=== PATIENT | male | born 1935 | race Hispanic/Latino ===

== ENCOUNTER 2017-10-10 10:09 | Observation (INO) | payer MEDICARE, OTHER ==
[~2017-10-10] VITALS: Ht 165.1 cm; Wt 76.7 kg
[~2017-10-10 10:09] MED LIST: AMLODIPINE-BEN1 EAC3; CHLORTHALIDONE50 MG; CLINDAMYCIN HC300 MG PO; DIOVAN HCT 3201 EACH PO; HYDRALAZINE HC100 MG; KETOCONAZOLE15 GM TOP; LEVOTHYROXINE75 MCG PO; LOSARTAN-HCTZ1 EAC2; METOPROLOL SUC100 MG PO; NAMENDA10 MG; PRAVACHOL20 MG
[2017-10-10 11:36] LABS: BASOPHILS % 0.5 % (0.0-1.0); EOSINOPHILS # (AUTO) 0.2 (0.0-0.4); EOSINOPHILS % 2.7 % (0.0-6.0); HEMATOCRIT 38.2 % (38.2-49.6); HEMOGLOBIN 12.7 g/dL (14.0-18.0); LYMPHOCYTES # (AUTO) 1.5 (1.0-3.2); LYMPHOCYTES % 24.1 % (18.0-39.1); MEAN CORPUSCULAR HEMOGLOBIN 29.6 pg (28-32); MEAN CORPUSCULAR HGB CONC 33.2 g/dL (31-35); MONOCYTES # (AUTO) 0.5 (0.2-0.8); MONOCYTES % 7.9 % (4.4-11.3); NEUTROPHILS # (AUTO) 4.1 (2.1-6.9); NEUTROPHILS % 64.5 % (38.7-80.0); PLATELET COUNT 167 x10e3/uL (140-360); RED BLOOD COUNT 4.29 x10e6/uL (4.3-5.7); RED CELL DISTRIBUTION WIDTH 14.4 % (11.7-14.4)
[2017-10-10 11:46] LABS: INR 1.07; PROTHROMBIN TIME 13.1 seconds (11.9-14.5)
[2017-10-10 11:47] LABS: PARTIAL THROMBOPLASTIN TIME 27.2 seconds (23.8-35.5)
[2017-10-10 11:56] LABS: ALANINE AMINOTRANSFERASE 11 IU/L (0-55); ALBUMIN 3.6 g/dL (3.5-5.0); ALBUMIN/GLOBULIN RATIO 1.1 (0.8-2.0); ALKALINE PHOSPHATASE 83 IU/L (40-150); ANION GAP 13.6 mmol/L (8-16); BLOOD UREA NITROGEN 26 mg/dL (7-26); BUN/CREATININE RATIO 25 (6-25); CALCIUM 9.2 mg/dL (8.4-10.2); CARBON DIOXIDE 28 mmol/L (22-29); CHLORIDE 100 mmol/L (98-107); CREATININE, SERUM 1.06 mg/dL (0.72-1.25); EST GLOMERULAR FILTRATION RATE > 60 ML/MIN (60-); GLUCOSE 104 mg/dL (74-118); POTASSIUM 3.6 mmol/L (3.5-5.1); SODIUM 138 mmol/L (136-145)
--- NOTE | 2017-10-10 15:09 | Diagnostic Imaging Report ---
PROCEDURE:CTA LOWER EXTREMITIES BILAT COMPARISON:None. TECHNIQUE:Bilateral lower extremity runoff was performed following the IV administration of 100 cc of Isovue-370. Postprocessing on a stand alone computer was accomplished. INDICATIONS:RIGHT LOWER EXTREMITY SWELLING X TWO WEEKS FINDINGS:Pelvic vessels reveal diffuse atherosclerotic disease without focal stenosis. The prostate is enlarged. Right Lower Extremity: The SFA is diffusely calcified but patent. Vessels below the knee have inadequate opacification to evaluate. Left Lower Extremity: The SFA is occluded. No opacification in the arteries below the knee. CONCLUSION: 1. Limited study due to lack of optimal contrast opacification particularly in the below the knee arteries. 2. Left SFA is occluded at its origin. 3. No left popliteal reconstitution. Ervin Steven D.O. Dictated by: Ervin Steven D.O. on 10/10/2017 at 14:58 Electronically approved by: Ervin Steven D.O. on 10/10/2017 at 15:14
[2017-10-10] MEDS ORDERED: CLINDAMYCIN PHOS 900MG/ D5W 50 50 ML IV STA (15:10)
[2017-10-10] MEDS ORDERED: ONDANSETRON HCL INJ 2 MG/ML VIAL IV PRN (16:30)
[2017-10-10] MEDS: SODIUM CHLORIDE 0.9% 1000ML 1,000 ML IV SCH (16:30)
[2017-10-10] MEDS ORDERED: ACETAMINOPHEN 325 MG TAB PO PRN (16:30)
[2017-10-10 16:56] VITALS: BP 154/72
[2017-10-10 16:57] VITALS: BP 154/72
[2017-10-10] MEDS ORDERED: SODIUM CHLORIDE 0.9% 100 ML 100 ML ONE (17:48)
[2017-10-10] MEDS ORDERED: IOPAMIDOL 370 MG/ML 200 ML INFUS..BTL INJ ONE (17:48)
[2017-10-10] MEDS: VANCOMYCIN 1GM/NS 250 ML 250 ML IV SCH (17:50)
[2017-10-10 20:00] VITALS: BP 105/61
[2017-10-10] MEDS: HEPARIN SOD (PORCINE) 5,000 UNIT/ML VIAL SC SCH (21:37)
[2017-10-11] VITALS: BP 118/64
[2017-10-11 04:00] VITALS: BP 151/73
[2017-10-11] MEDS: SODIUM CHLORIDE 0.9% 1000ML 1,000 ML IV SCH (05:12)
[2017-10-11] MEDS: VANCOMYCIN 1GM/NS 250 ML 250 ML IV SCH (05:12)
[2017-10-11 05:38] LABS: BASOPHILS % 0.4 % (0.0-1.0); EOSINOPHILS # (AUTO) 0.2 (0.0-0.4); EOSINOPHILS % 3.3 % (0.0-6.0); HEMATOCRIT 40.3 % (38.2-49.6); HEMOGLOBIN 13.3 g/dL (14.0-18.0); LYMPHOCYTES # (AUTO) 1.2 (1.0-3.2); LYMPHOCYTES % 20.4 % (18.0-39.1); MEAN CORPUSCULAR HEMOGLOBIN 28.9 pg (28-32); MEAN CORPUSCULAR VOLUME 87.6 fL (81-99); MONOCYTES # (AUTO) 0.5 (0.2-0.8); MONOCYTES % 7.9 % (4.4-11.3); NEUTROPHILS # (AUTO) 3.8 (2.1-6.9); NEUTROPHILS % 66.8 % (38.7-80.0); PLATELET COUNT 178 x10e3/uL (140-360); RED CELL DISTRIBUTION WIDTH 14.3 % (11.7-14.4)
[2017-10-11 05:59] LABS: ANION GAP 15.1 mmol/L (8-16); BLOOD UREA NITROGEN 23 mg/dL (7-26); BUN/CREATININE RATIO 23 (6-25); CALCIUM 8.8 mg/dL (8.4-10.2); CARBON DIOXIDE 23 mmol/L (22-29); CHLORIDE 103 mmol/L (98-107); EST GLOMERULAR FILTRATION RATE > 60 ML/MIN (60-); GLUCOSE 106 mg/dL (74-118); POTASSIUM 3.1 mmol/L (3.5-5.1); SODIUM 138 mmol/L (136-145)
[2017-10-11] MEDS ORDERED: LEVOTHYROXINE SODIUM 75 MCG TAB PO SCH ×2 (06:00→09:00)
[2017-10-11 08:00] VITALS: BP 160/74
[2017-10-11] MEDS ORDERED: NON-FORMULARY MEDICATION (Metoprolol Succinate 100 MG) PO SCH (09:00)
[2017-10-11] MEDS ORDERED: ASPIRIN 325 MG TAB PO SCH (09:00)
[2017-10-11] MEDS ORDERED: ASPIRIN 81 MG CHEW TAB PO SCH (09:00)
[2017-10-11] MEDS ORDERED: NAMENDA 28MG NON FORMULARY ITEM PO SCH (09:00)
[2017-10-11] MEDS ORDERED: METOPROLOL SUCCINATE 50 MG TAB XL PO SCH (09:00)
[2017-10-11] MEDS ORDERED: MEMANTINE 10 MG TAB PO SCH (09:00)
[2017-10-11 09:50] VITALS: BP 160/74
[2017-10-11] MEDS: HEPARIN SOD (PORCINE) 5,000 UNIT/ML VIAL SC SCH (09:50)
[2017-10-11 12:00] VITALS: BP 131/63
[2017-10-11] MEDS ORDERED: POTASSIUM CHLORIDE 20 MEQ TAB CR PO ONE (12:00)
[2017-10-11] MEDS ORDERED: BACTRIM DS TAB1 EACH PO (12:43)
[2017-10-11] MEDS ORDERED: ASPIRIN81 MG PO (12:44)
--- NOTE | 2017-10-11 13:25 | Discharge Summary ---
PRIMARY CARE PHYSICIAN: Dr. Tari Weiner. FINAL DIAGNOSIS: Right leg cellulitis. SECONDARY DIAGNOSES 1. Left leg peripheral vascular disease. 2. Hypertension. 3. Dementia. 4. Coronary artery disease with previous coronary artery bypass graft. CONSULTANTS: None. PROCEDURES/STUDIES PERFORMED: Right leg venous Doppler negative for DVT. HISTORY: Per H\T\P. HOSPITAL COURSE: The patient was admitted. He received a dose of IV clindamycin in the emergency room. Subsequently, IV vancomycin was started. He got 2 doses. Today, his right leg is looking much better. The redness has significantly decreased. Therefore, I will go ahead and send him home on p.o. Bactrim for 3 more days. The patient will also elevate his right leg when he is on his feet. The patient will follow up with Dr. Weiner in one week. Interestingly, CTA of both legs were done in the emergency room, and it looks like the patient has peripheral vascular disease on the left side. Apparently, this does not appear to be new. at the bedside endorsed that this was diagnosed about a year of two ago. At this time, the patient is completely asymptomatic. Therefore, the patient can be discharged home with outpatient workup. The patient was seen and examined today. A baby aspirin was started for both his coronary artery disease and peripheral vascular disease. CONDITION ON DISCHARGE: Improved. DISCHARGE MEDICATIONS: Please see medication reconciliation form. OBI CARTER M.D. Job#: [id number] cc:TARI WEINER MD
== END 2017-10-11 13:03 | disposition home or self-care (01) ==
LOC: ER 10:09 → ERHOLD 16:19 → MED/SURG 16:21
PROVIDERS: ADMIT Internal Medicine; ATTEND Internal Medicine
DX: L03.115 Cellulitis of right lower limb (principal); I10 Essential (primary) hypertension; E03.9 Hypothyroidism, unspecified; F03.90 Unspecified dementia, unspecified severity, without behavioral disturbance, psychotic disturbance, mood disturbance, and anxiety; I25.10 Atherosclerotic heart disease of native coronary artery without angina pectoris; Z95.1 Presence of aortocoronary bypass graft; Z82.49 Family history of ischemic heart disease and other diseases of the circulatory system; Z88.0 Allergy status to penicillin; I73.9 Peripheral vascular disease, unspecified
CPT/HCPCS: 36415 ×2; 73706; 80048; 80053; 85025 ×2; 85610; 85730; 93971; 96367; 96372; 99284; G0378 ×2; J1644 ×2; J3370 ×2; J7030 ×2; Q9967

== ENCOUNTER 2018-10-09 07:58 | Observation (INO) | payer MEDICARE, OTHER ==
[~2018-10-09] VITALS: Ht 170.2 cm; Wt 74.8 kg
[~2018-10-09 07:58] MED LIST changes: +ASPIRIN81 MG PO; +BACTRIM DS TAB1 EACH PO
--- OUTSIDE RECORDS SUMMARY | 2018-10-09 08:01 | XMS REPORT | Continuity of Care Document ---
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 Name Role Phone Vyatta Information [employer] Unavailable Unavailable Problems Problem Status Onset Date Classification Date Reported Comments Source LOWER GI BLEED Active 08/11/2011 [facility] CAD - Coronary artery disease Active Problem 09/21/2011 [facility] [place],[facility] CHF - Congestive heart failure Inactive Problem 09/21/2011 [facility] [place] Hypothyroidism Active Problem 09/21/2011 [facility] [place] Coronary arteriosclerosis (disorder) Active Problem 03/31/2016 [facility] [place] Hypothyroidism (disorder) Active [facility]31[facility] [place] GASTROINTEST HEMORR NOS Active [facility] Medications Medication Details Route Status Patient Instructions Ordering Provider Order Date Source LR IV 1,000 mL 1,000 mL, Rate: 40 ml/hr, Infuse over: 25 hr, Route: IV, Dosing Weight 73.001 kg, Total Volume: 1,000, Start date: 08/14/11 9:50:00, Duration: 30 day, Stop date: 09/13/11 9:49:00 IV No Longer Active Georgiaouni 08/14/2011 [facility] GoLYTELY 4,000 ml, Route: PO, Drug Form: PDR/REC, ONCE, Start date: 08/13/11 18:06:00, Duration: 1 doses or times, Stop date: 08/13/11 18:06:00 PO No Longer Active Kafrouni 08/13/2011 [facility] Dulcolax Laxative 40 mg, 8 tab, Route: PO, Drug form: ECTAB, ONCE, Start date: 08/13/11 18:06:00, Stop date: 08/13/11 18:06:00 PO No Longer Active Kafrouni 08/13/2011 [facility] Mag-Ox 400 400 mg, 1 tab, Route: PO, Drug form: TAB, QPM, Start date: 08/13/11 17:00:00, Duration: 30 day, Stop date: 09/11/11 17:00:00 PO No Longer Active Adelita 08/13/2011 [facility] NovoLog FlexPen 4 unit, 0.04 mL, Route: SUB-Q, Drug form: SOLN, Bedtime, PRN Blood Glucose Results, Start date: 08/13/11 12:53:00, Duration: 30 day, Stop date: 09/12/11 12:52:00 SUB-Q No Longer Active Baba 08/13/2011 [facility] glucagon 1 mg, Route: IM, Drug form: PDR/INJ, PRN, PRN Blood Glucose Results, Start date: 08/13/11 12:52:00, Duration: 30 day, Stop date: 09/12/11 12:51:00 IM No Longer Active Baba 08/13/2011 [facility] Dextrose 50% in Water IV 50 mL, Route: IVP, Start date: 08/13/11 12:52:00, Duration: 30 day, Stop date: 09/12/11 12:51:00, PRN Blood Glucose Results IVP No Longer Active Bannera 08/13/2011 [facility] NovoLog FlexPen 10 unit, 0.1 mL, Route: SUB-Q, Drug form: SOLN, Sliding Scale, PRN Blood Glucose Results, Start date: 08/13/11 12:52:00, Duration: 30 day, Stop date: 09/12/11 12:51:00 SUB-Q No Longer Active Bannera 08/13/2011 [facility] Cordarone 200 mg, 1 tab, Route: PO, Drug form: TAB, Daily, Start date: 08/13/11 12:00:00, Duration: 30 day, Stop date: 09/12/11 9:00:00 PO No Longer Active [facility] 08/13/2011 [facility] pneumococcal 23-valent vaccine 0.5 ml, Route: IM, Drug Form: INJ, Start date: 08/13/11 9:00:00, Stop date: 08/13/11 9:00:00 IM No Longer Active SYSTEM 08/13/2011 [facility] hydrochlorothiazide 25 mg oral tablet 25 mg, 1 tab, Route: PO, Drug form: TAB, Daily, Start date: 08/13/11 9:00:00, Duration: 30 day, Stop date: 09/11/11 9:00:00 PO No Longer Active Baba 08/13/2011 [facility] Cozaar 100 mg, 2 tab, Route: PO, Drug form: TAB, Daily, Start date: 08/13/11 9:00:00, Duration: 30 day, Stop date: 09/11/11 9:00:00 PO No Longer Active Baba 08/13/2011 [facility] Hyzaar 100 mg-25 mg oral tablet 1 tab, Route: PO, Drug Form: TAB, Daily, Start date: 08/13/11 9:00:00, Duration: 30 day, Stop date: 09/11/11 9:00:00 PO No Longer Active Baba 08/13/2011 [facility] Pravachol 20 mg, 1 tab, Route: PO, Drug form: TAB, QPM, Start date: 08/12/11 21:00:00, Duration: 30 day, Stop date: 09/11/11 17:00:00 PO No Longer Active Baba 08/13/2011 [facility] hydrALAZINE 100 mg oral tablet 100 mg, 2 tab, Route: PO, Drug form: TAB, BID, Start date: 08/12/11 21:00:00, Duration: 30 day, Stop date: 09/11/11 9:00:00 PO No Longer Active Baba 08/13/2011 [facility] nitroglycerin 0.4 mg sublingual tablet 0.4 mg, 1 tab, Route: SL, Drug form: TAB, Q5Min, PRN Chest Pain, Start date: 08/12/11 20:40:00, Duration: 30 day, Stop date: 09/11/11 20:39:00 SL No Longer Active Baba 08/13/2011 [facility] atropine 0.5 mg, 5 mL, Route: IVP, Drug form: INJ, PRN, PRN Bradycardia, Start date: 08/12/11 20:40:00, Duration: 30 day, Stop date: 09/11/11 20:39:00 IVP No Longer Active Baba 08/13/2011 [facility] pantoprazole 40 mg, Route: IVP, Drug form: INJ, Daily, Priority: Routine, Start date: 08/12/11 9:00:00, Duration: 30 day, Stop date: 09/10/11 9:00:00 IVP No Longer Active Baba 08/12/2011 [facility] Saline Flush 0.9% 5 ml, Route: IVP, Drug Form: INJ, PRN, PRN Line Flush, Start date: 08/12/11 3:02:00, Duration: 30 day, Stop date: 09/11/11 3:01:00 IVP No Longer Active Baba 08/12/2011 [facility] 1/2NS + KCL 20mEq/L 1000ml (Premix) 1,000 mL 1,000 mL, Rate: 125 ml/hr, Infuse over: 8 hr, Route: IV, Dosing Weight 79.545 kg, Total Volume: 1,000, Start date: 08/12/11 3:02:00, Stop date: 09/11/11 3:01:00 IV No Longer Active Baba 08/12/2011 [facility] ondansetron 4 mg, 2 mL, Route: IVP, Drug form: INJ, Q6H, PRN Nausea & Vomiting, Start date: 08/12/11 3:02:00, Duration: 30 day, Stop date: 09/11/11 3:01:00 IVP No Longer Active Baba 08/12/2011 [facility] Centrum Silver Men's oral tablet Substitution Allowed, Maintenance Active 08/12/2011 [facility] Toprol-XL 100 mg oral tablet, extended release 100 mg, 1 tab, PO, Daily, 30 tab, Substitution Allowed, ERTAB PO No Longer Active 08/12/2011 [facility] Hyzaar 100 mg-25 mg oral tablet 1 tab, PO, Daily, 30 tab, Substitution Allowed, Maintenance, TAB PO Active Baba 08/12/2011 [facility] hydrALAZINE 100 mg oral tablet 100 mg, 1 tab, PO, BID, 60 tab, Substitution Allowed, TAB PO Active Baba 08/12/2011 [facility] Pravachol 20 mg oral tablet 20 mg, 1 tab, PO, Daily, 30 tab, Substitution Allowed, TAB PO Active Baba 08/12/2011 [facility] Saline Flush 0.9% 5 ml, Route: IVP, Drug Form: INJ, PRN, PRN Line Flush, Start date: 08/11/11 17:30:00, Duration: 30 day, Stop date: 09/10/11 17:29:00 IVP No Longer Active 08/11/2011 [facility] ondansetron 4 mg, Route: IVP, ONCE, Priority: STAT, Start date: 08/11/11 17:30:00, Stop date: 08/11/11 17:30:00 IVP No Longer Active Sera 08/11/2011 [facility] Allergies, Adverse Reactions, Alerts Substance Category Reaction Severity Reaction type Status Date Reported Comments Source penicillins Assertion Drug allergy Active [facility] Immunizations Immunization Date Given Site Status Last Updated Comments Source pneumococcal 23-valent vaccine 08/13/2011 Not Given Carin [facility] [place],[facility] Results Order Name Results Value Reference Range Date Interpretation Comments Source CHEMISTRY Bili Total 0.8 0.2 - 1.3 08/13/2011 Normal [facility] CHEMISTRY Alk Phos 51 39 - 136 08/13/2011 Normal [facility] CHEMISTRY ALT 19 0 - 65 08/13/2011 Normal [facility] CHEMISTRY Albumin Lvl 3.3 3.5 - 5.0 08/13/2011 LOW [facility] CHEMISTRY AST 18 0 - 37 08/13/2011 Normal [facility] CHEMISTRY BUN 14 7 - 22 08/13/2011 Normal [facility] CHEMISTRY Glucose Lvl 93 70 - 99 08/13/2011 Normal <sup>2</sup>Interpretive Data: Adult reference range values reflect the clinical guidelines of the [place] [employer]. [facility] CHEMISTRY Total Protein 5.9 6.4 - 8.4 08/13/2011 LOW [facility] CHEMISTRY Calcium Lvl 7.9 8.5 - 10.5 08/13/2011 LOW [facility] CHEMISTRY CO2 25 24 - 32 08/13/2011 Normal [facility] CHEMISTRY Creatinine Lvl 1.1 0.5 - 1.4 08/13/2011 Normal [facility] CHEMISTRY Sodium Lvl 143 135 - 145 08/13/2011 Normal [facility] CHEMISTRY Chloride Lvl 110 95 - 109 08/13/2011 HI [facility] CHEMISTRY Potassium Lvl 3.9 3.5 - 5.1 08/13/2011 Normal [facility] CHEMISTRY AGAP 11.9 10.0 - 20.0 08/13/2011 Normal [facility] CHEMISTRY Globulin 2.6 2.0 - 4.0 08/13/2011 Normal [facility] CHEMISTRY B/C Ratio 13 6 - 25 08/13/2011 Normal [facility] CHEMISTRY A/G Ratio 1.3 0.7 - 1.6 08/13/2011 [facility]EMATOLOGY MCHC 34.0 32.0 - 36.0 08/13/2011 [facility] HEMATOLOGY RDW 15.1 11.5 - 14.5 08/13/2011 [facility] HEMATOLOGY MCV 88.2 80.0 - 94.0 08/13/2011 [facility] HEMATOLOGY MCH 29.9 27.0 - 31.0 08/13/2011 [facility] HEMATOLOGY MPV 9.2 7.4 - 10.4 08/13/2011 [facility] HEMATOLOGY Platelet 161 133 - 450 08/13/2011 [facility] HEMATOLOGY Hct 31.6 42.0 - 54.0 08/13/2011 LOW [facility] HEMATOLOGY RBC 3.58 4.70 - 6.10 08/13/2011 LOW [facility] HEMATOLOGY Hgb 10.7 14.0 - 18.0 08/13/2011 LOW [facility] HEMATOLOGY WBC 5.2 3.7 - 10.4 08/13/2011 [facility] HEMATOLOGY Eosinophils # 0.1 0.0 - 0.5 08/13/2011 Normal [facility] HEMATOLOGY Eosinophils 2.5 0.0 - 4.0 08/13/2011 Normal [facility] HEMATOLOGY Lymphocytes # 1.2 1.0 - 5.5 08/13/2011 Normal [facility] HEMATOLOGY Segs-Bands # 3.4 1.5 - 8.1 08/13/2011 Normal [facility] HEMATOLOGY Monocytes # 0.4 0.0 - 0.8 08/13/2011 Normal [facility] HEMATOLOGY Basophils 0.3 0.0 - 1.0 08/13/2011 Normal [facility] HEMATOLOGY Lymphocytes 23.4 20.0 - 40.0 08/13/2011 Normal [facility] HEMATOLOGY Segs 65.3 45.0 - 75.0 08/13/2011 Normal [facility] HEMATOLOGY Monocytes 8.5 2.0 - 12.0 08/13/2011 Normal [facility] HEMATOLOGY Basophils # 0.0 0.0 - 0.2 08/13/2011 [facility] CHEMISTRY Creatinine Lvl 1.0 0.5 - 1.4 08/12/2011 Normal [facility] CHEMISTRY Sodium Lvl 139 135 - 145 08/12/2011 [facility] CHEMISTRY Chloride Lvl 107 95 - 109 08/12/2011 Normal [facility] CHEMISTRY Potassium Lvl 3.9 3.5 - 5.1 08/12/2011 Normal [facility] CHEMISTRY CO2 21 24 - 32 08/12/2011 LOW [facility] CHEMISTRY AGAP 14.9 10.0 - 20.0 08/12/2011 Normal [facility] CHEMISTRY Calcium Lvl 8.4 8.5 - 10.5 08/12/2011 LOW [facility] CHEMISTRY BUN 20 7 - 22 08/12/2011 Normal [facility] CHEMISTRY Glucose Lvl 89 70 - 99 08/12/2011 Normal <sup>3</sup>Interpretive Data: Adult reference range values reflect the clinical guidelines of the [place] [employer]. [facility] HEMATOLOGY Hct 33.9 42.0 - 54.0 08/12/2011 LOW [facility] HEMATOLOGY Hgb 11.7 14.0 - 18.0 08/12/2011 [facility] HEMATOLOGY Hgb 10.9 14.0 - 18.0 08/12/2011 [facility] HEMATOLOGY Hct 31.2 42.0 - 54.0 08/12/2011 [facility] BACTERIAL - SEROLOGY MRSA by PCR Negative 1 (08/12/2011 06:38:00) 08/12/2011 Normal <sup>1</sup>Interpretive Data: INTERPRETATION: Negative......No MRSA DNA detected by PCR Positive......MRSA DNA detected by PCR ASSAY LIMITATIONS: This is a screening test for colonization by MRSA. A positive test result indicates the patient is colonized by MRSA, but does not necessarily mean that an infection is present or that treatment is necessary. Likewise, a negative test does not exclude colonization or infection. Patients should be evaluated clinically for symptoms and signs of infection before making therapeutic decisions. Routine decolonization is discouraged and should only be considered for select patients after consultation with an infectious diseases specialist. [facility] HEMATOLOGY Monocytes 8.1 2.0 - 12.0 08/12/2011 Normal [facility] HEMATOLOGY Basophils 0.6 0.0 - 1.0 08/12/2011 Normal [facility] HEMATOLOGY Eosinophils 2.1 0.0 - 4.0 08/12/2011 Normal [facility] HEMATOLOGY Lymphocytes # 1.2 1.0 - 5.5 08/12/2011 Normal [facility] HEMATOLOGY Segs-Bands # 3.1 1.5 - 8.1 08/12/2011 Normal [facility] HEMATOLOGY Lymphocytes 25.5 20.0 - 40.0 08/12/2011 Normal [facility] HEMATOLOGY Segs 63.7 45.0 - 75.0 08/12/2011 Normal [facility] HEMATOLOGY Basophils # 0.0 0.0 - 0.2 08/12/2011 [facility] HEMATOLOGY Eosinophils # 0.1 0.0 - 0.5 08/12/2011 Normal [facility] HEMATOLOGY Monocytes # 0.4 0.0 - 0.8 08/12/2011 Normal [facility] HEMATOLOGY MCHC 34.1 32.0 - 36.0 08/12/2011 Normal [facility] HEMATOLOGY MCH 30.2 27.0 - 31.0 08/12/2011 Normal [facility] HEMATOLOGY MCV 88.6 80.0 - 94.0 08/12/2011 [facility] HEMATOLOGY RBC 3.67 4.70 - 6.10 08/12/2011 LOW [facility] HEMATOLOGY WBC 4.8 3.7 - 10.4 08/12/2011 [facility] HEMATOLOGY RDW 14.5 11.5 - 14.5 08/12/2011 [facility] HEMATOLOGY MPV 9.1 7.4 - 10.4 08/12/2011 Normal [facility] HEMATOLOGY Platelet 161 133 - 450 08/12/2011 [facility] HEMATOLOGY Eosinophils # 0.1 0.0 - 0.5 08/12/2011 Normal [facility] HEMATOLOGY Basophils # 0.0 0.0 - 0.2 08/12/2011 Normal [facility] HEMATOLOGY Lymphocytes # 1.4 1.0 - 5.5 08/12/2011 Normal [facility] HEMATOLOGY Monocytes # 0.4 0.0 - 0.8 08/12/2011 [facility] HEMATOLOGY Eosinophils 1.1 0.0 - 4.0 08/12/2011 [facility] HEMATOLOGY Basophils 0.5 0.0 - 1.0 08/12/2011 Normal [facility] HEMATOLOGY Segs 67.4 45.0 - 75.0 08/12/2011 [facility] HEMATOLOGY Segs-Bands # 4.0 1.5 - 8.1 08/12/2011 Normal [facility] HEMATOLOGY Lymphocytes 24.1 20.0 - 40.0 08/12/2011 Normal [facility] HEMATOLOGY Monocytes 6.9 2.0 - 12.0 08/12/2011 Normal [facility] HEMATOLOGY WBC 5.9 3.7 - 10.4 08/12/2011 Normal [facility] HEMATOLOGY RBC 3.75 4.70 - 6.10 08/12/2011 LOW [facility] HEMATOLOGY Platelet 166 133 - 450 08/12/2011 Normal [facility] HEMATOLOGY RDW 14.7 11.5 - 14.5 08/12/2011 HI [facility] HEMATOLOGY MPV 9.0 7.4 - 10.4 08/12/2011 Normal [facility] HEMATOLOGY MCH 30.7 27.0 - 31.0 08/12/2011 Normal [facility] HEMATOLOGY MCV 88.4 80.0 - 94.0 08/12/2011 Normal [facility] HEMATOLOGY MCHC 34.7 32.0 - 36.0 08/12/2011 Normal [facility] BLOOD BANK RESULTS ABO/Rh B POS 08/12/2011 Unknown [facility] BLOOD BANK RESULTS Antibody Scrn Negative (08/11/2011 19:50:00) 08/12/2011 Normal [facility] CHEMISTRY Albumin Lvl 3.6 3.5 - 5.0 08/11/2011 Normal [facility] CHEMISTRY Calcium Lvl 7.9 8.5 - 10.5 08/11/2011 LOW [facility] CHEMISTRY Glucose Lvl 102 70 - 99 08/11/2011 HI <sup>4</sup>Interpretive Data: Adult reference range values reflect the clinical guidelines of the [place] [employer]. [facility] CHEMISTRY Creatinine Lvl 1.2 0.5 - 1.4 08/11/2011 Normal [facility] CHEMISTRY BUN 24 7 - 22 08/11/2011 HI [facility] CHEMISTRY Chloride Lvl 105 95 - 109 08/11/2011 Normal [facility] CHEMISTRY Potassium Lvl 3.3 3.5 - 5.1 08/11/2011 LOW [facility] CHEMISTRY CO2 22 24 - 32 08/11/2011 LOW [facility] CHEMISTRY Sodium Lvl 138 135 - 145 08/11/2011 Normal [facility] CHEMISTRY Total Protein 6.5 6.4 - 8.4 08/11/2011 Normal [facility] CHEMISTRY Alk Phos 57 39 - 136 08/11/2011 Normal [facility] CHEMISTRY Bili Total 1.0 0.2 - 1.3 08/11/2011 Normal [facility] CHEMISTRY AST 14 0 - 37 08/11/2011 Normal [facility] CHEMISTRY ALT 19 0 - 65 08/11/2011 Normal [facility] CHEMISTRY AGAP 14.3 10.0 - 20.0 08/11/2011 Normal [facility] CHEMISTRY B/C Ratio 20 6 - 25 08/11/2011 Normal [facility] CHEMISTRY A/G Ratio 1.2 0.7 - 1.6 08/11/2011 Normal [facility] CHEMISTRY Globulin 2.9 2.0 - 4.0 08/11/2011 Normal [facility] CHEMISTRY Lipase Lvl 146 73 - 393 08/11/2011 Normal [facility] HEMATOLOGY PTT 28.6 22.9 - 35.8 08/11/2011 Normal <sup>6</sup>Interpretive Data: Heparin Therapeutic Range: 57 - 92 Seconds [facility] HEMATOLOGY PT 14.0 12.0 - 14.7 08/11/2011 Normal [facility] HEMATOLOGY INR 1.08 0.85 - 1.17 08/11/2011 Normal <sup>5</sup>Interpretive Data: RECOMMENDED RANGES FOR PROTIME INR: 2.0-3.0 for most medical and surgical thromboembolic states. 2.5-3.5 for artificial heart valves and recurrent embolism. INR SHOULD BE USED ONLY FOR PATIENTS ON STABLE ANTICOAGULANT THERAPY. [facility] Pathology Reports No Data Provided for This Section Diagnostic Reports Report Value Date Source Hand 3 views DX Exam: Left hand x-ray, 3 views Reason for exam: left hand pain Comparison exam: None Discussion: No fractures or dislocations are seen within the left hand. 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 No suspicious intraosseous lesions. No radiopaque foreign bodies. Impression: 1. 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 Ultrasound examination was performed from the groin to the ankle using real time, duplex, and color Doppler technique. Both augmentation and compression maneuvers were performed. The common femoral, femoral, popliteal, and posterior tibial veins are normally compressible and augment normally. IMPRESSION: 1. No evidence of deep venous thrombosis of the right lower extremity. 02/04/2014 ESA Fowler Consultation Notes No Data Provided for This Section Discharge Summaries No Data Provided for This Section History and Physicals No Data Provided for This Section Vital Signs Vital Sign Value Date Comments Source Temperature Oral (F) 98.0 F 08/16/2011 [facility] Respitory Rate 20 08/16/2011 [facility] Diastolic (mm Hg) 78 08/16/2011 [facility] Systolic (mm Hg) 146 08/16/2011 [facility] Heart Rate 71 08/16/2011 [facility] Diastolic (mm Hg) 62 08/15/2011 [facility] Temperature Oral (F) 98.4 F 08/15/2011 [facility] Heart Rate 92 08/15/2011 [facility] Respitory Rate 20 08/15/2011 [facility] Systolic (mm Hg) 121 08/15/2011 [facility] Heart Rate 62 08/15/2011 [facility] Temperature Oral (F) 98.1 F 08/15/2011 [facility] Systolic (mm Hg) 129 08/15/2011 [facility] Respitory Rate 20 08/15/2011 [facility] Diastolic (mm Hg) 72 08/15/2011 [facility] Weight 73.001 08/12/2011 [facility] Height 167.64 cm 08/11/2011 [facility] Weight 79.545 08/11/2011 [facility] Encounters Location Location Details Encounter Type Encounter Number Reason For Visit Attending Provider ADM Date DC Date Status Source [facility] Inpatient [id number] KELLY TRIPLETT 08/11/2011 08/15/2011 Discharged [facility] [place] [facility] [id number] Harpreet Weiner 02/04/2014 02/05/2014 [facility] [place] [facility] - [place] [facility] [id number] Harpreet Weiner 03/28/2016 03/29/2016 [facility] [place] Procedures No Data Provided for This Section Assessment and Plan No Data Provided for This Section Plan of Care No Data Provided for This Section Social History Social History Date Source No data available for this section 03/29/2016 [facility] [place] Family History No Data Provided for This Section Advance Directives No Data Provided for This Section Functional Status No Data Provided for This Section
[2018-10-09] MEDS ORDERED: TETANUS/DIPHTHERIA TOX ADULT 0.5 ML SYR IM STA (08:07)
[2018-10-09] MEDS ORDERED: MUPIROCIN 2% OINT 22 GM TUBE TOP ONE (08:15)
[2018-10-09] MEDS ORDERED: SODIUM CHLORIDE 0.9% 1000ML 1,000 ML IV STA (08:53)
[2018-10-09 09:10] LABS: BASOPHILS % 0.2 % (0.0-1.0); EOSINOPHILS % 0.1 % (0.0-6.0); HEMATOCRIT 41.2 % (38.2-49.6); LYMPHOCYTES # (AUTO) 0.3 (1.0-3.2); LYMPHOCYTES % 2.1 % (18.0-39.1); MEAN CORPUSCULAR HEMOGLOBIN 30.2 pg (28-32); MONOCYTES # (AUTO) 0.6 (0.2-0.8); MONOCYTES % 4.7 % (4.4-11.3); NEUTROPHILS # (AUTO) 11.1 (2.1-6.9); NEUTROPHILS % 92.4 % (38.7-80.0); PLATELET COUNT 175 x10e3/uL (140-360); RED BLOOD COUNT 4.63 x10e6/uL (4.3-5.7); RED CELL DISTRIBUTION WIDTH 13.9 % (11.7-14.4)
--- NOTE | 2018-10-09 09:11 | NUR ---
lac repair via shelby x 4 to occipital head performed by Dr Warren
[2018-10-09] MEDS ORDERED: LOSARTAN-HCTZ1 EAC1 PO (09:17)
--- NOTE | 2018-10-09 09:23 | Diagnostic Imaging Report ---
Chest, 1 view, 10/09/2018. History: Chest pain, altered mental status, fall. Comparison: None available. Findings: The cardiomediastinal silhouette and pulmonary vasculature are mildly prominent. Linear opacities are present at the lung base. There is no focal consolidation. Median sternotomy wires are present. There are no acute osseous or soft tissue abnormalities. Impression: Mild cardiomegaly, vascular congestion, and bibasilar atelectasis. Signed by: Carlos Rachel on 10/09/2018 9:20 AM
--- NOTE | 2018-10-09 09:28 | Diagnostic Imaging Report ---
EXAMINATION: Head CT HISTORY: Status post fall, trauma, laceration to the back of the head COMPARISON: None. TECHNIQUE: Multidetector axial images were obtained without contrast from the foramen magnum to the vertex . The images were reconstructed using brain and bone algorithms. Thin section brain images were reformatted into coronal and sagittal planes. Image quality: Motion/streaking artifact limits the evaluation of the skull base and posterior cranial fossa. Dose modulation, iterative reconstruction, and/or weight based adjustment of the mA/kV was utilized to reduce the radiation dose to as low as reasonably achievable. FINDINGS: Parenchyma: 1. A few scattered and ventricular matter hypodensities, most likely nonspecific chronic microvascular ischemic changes. 2. No mass or hemorrhage. No CT evidence of acute territorial vascular insult. Extra-axial spaces:No abnormal density. No extra-axial fluid collections Brain volume: Generalized volume loss, with particular prominence of the bilateral temporal horns and bilateral hippocampal atrophy, which can be seen in patient's with Alzheimer's disease in the correct clinical setting. Ventricles: Mild ventriculomegaly, that is slightly out of proportion to the size of the cortical sulci, thinning and upward displacement of the corpus callosum, with relative partial effacement of the vertex region sulci. Some degree of normal pressure hydrocephalus cannot be excluded in the appropriate clinical setting. Arteries: No density suggestive of thrombus. Dural sinuses: No abnormal density. Extra-axial spaces: No abnormal density. Foramen magnum: No mass, Chiari malformation, or basilar invagination. Sella: No obvious mass. Paranasal/mastoid sinuses: Hypo pneumatization, sclerosis and opacification of the left mastoid air cells and middle ear, likely from chronic inflammatory process. Skull/Scalp: Right superior parietal scalp swelling/hematoma without underlying fractures IMPRESSION: 1. No acute post traumatic intracranial hemorrhage. Right parietal scalp swelling/hematoma without underlying fractures. 2. Mild disproportionate ventriculomegaly as detail above. 3. Disproportionate bilateral medial temporal/hippocampal atrophy as described. 4. Likely chronic nonspecific opacification of the left mastoid air cells and middle ear. Signed by: Dr. Ilene Baltazar M.D. on 10/09/2018 9:24 AM
[2018-10-09 09:37] LABS: ALANINE AMINOTRANSFERASE 14 IU/L (0-55); ALBUMIN 4.2 g/dL (3.5-5.0); ALBUMIN/GLOBULIN RATIO 1.3 (0.8-2.0); ALKALINE PHOSPHATASE 87 IU/L (40-150); ANION GAP 17.3 mmol/L (8-16); BLOOD UREA NITROGEN 26 mg/dL (7-26); BUN/CREATININE RATIO 23 (6-25); CALCIUM 9.8 mg/dL (8.4-10.2); CARBON DIOXIDE 26 mmol/L (22-29); CHLORIDE 103 mmol/L (98-107); CREATINE KINASE 116 IU/L (30-200); CREATININE, SERUM 1.13 mg/dL (0.72-1.25); EST GLOMERULAR FILTRATION RATE > 60 ML/MIN (60-); GLUCOSE 125 mg/dL (74-118); POTASSIUM 3.3 mmol/L (3.5-5.1); SODIUM 143 mmol/L (136-145)
[2018-10-09] MEDS ORDERED: LACTATED RINGER'S 1,000 ML IV SCH (10:04)
[2018-10-09] MEDS ORDERED: ONDANSETRON HCL INJ 2MG/ML 2ML 2 MG/ML VIAL IV PRN (10:15)
[2018-10-09] MEDS ORDERED: CLONIDINE HCL 0.1 MG TAB PO PRN (10:15)
[2018-10-09] MEDS ORDERED: DIPHENHYDRAMINE HCL INJ 50 MG/ML VIAL IV PRN (10:15)
[2018-10-09] MEDS ORDERED: ACETAMINOPHEN 325 MG TAB PO PRN (10:15)
[2018-10-09] MEDS ORDERED: SODIUM CHLORIDE FLUSH 10 ML SYR INJ PRN (10:15)
[2018-10-09] MEDS ORDERED: ENALAPRILAT IV INJ 1.25 MG/ML VIAL IV PRN (10:15)
--- OUTSIDE RECORDS SUMMARY | 2018-10-09 10:19 | XMS REPORT | Continuity of Care Document ---
Author Author [facility] Organization [facility] Address Unknown Phone Unavailable Care Team Providers Care Assistant Shift Supervisor Name Role Phone [email or web address] ([employer]) Information [employer] Unavailable Unavailable Problems Problem Status Onset Date Classification Date Reported Comments Source LOWER GI BLEED Active 08/11/2011 [facility] CAD - Coronary artery disease Active Problem 09/21/2011 [facility] [place] CHF - Congestive heart failure Inactive Problem 09/21/2011 [facility] [place] Hypothyroidism Active Problem 09/21/2011 [facility] [place] Coronary arteriosclerosis (disorder) Active Problem 03/31/2016 [facility] [place] Hypothyroidism (disorder) Active Problem 03/31/2016 [facility] [place] GASTROINTEST HEMORR NOS Active [facility] Medications Medication Details Route Status Patient Instructions Ordering Provider Order Date Source LR IV 1,000 mL 1,000 mL, Rate: 40 ml/hr, Infuse over: 25 hr, Route: IV, Dosing Weight 73.001 kg, Total Volume: 1,000, Start date: 08/14/11 9:50:00, Duration: 30 day, Stop date: 09/13/11 9:49:00 IV No Longer Active Georgiaouni 08/14/2011 [facility] GoLYTELY 4,000 ml, Route: PO, Drug Form: PDR/REC, ONCE, Start date: 08/13/11 18:06:00, Duration: 1 doses or times, Stop date: 08/13/11 18:06:00 PO No Longer Active Kafrouni 08/13/2011 [facility] Dulcolax Laxative 40 mg, 8 tab, Route: PO, Drug form: ECTAB, ONCE, Start date: 08/13/11 18:06:00, Stop date: 08/13/11 18:06:00 PO No Longer Active Kafrouni 08/13/2011 [facility] Mag-Ox 400 400 mg, 1 tab, Route: PO, Drug form: TAB, QPM, Start date: 08/13/11 17:00:00, Duration: 30 day, Stop date: 09/11/11 17:00:00 PO No Longer Active Adelita 08/13/2011 [facility] NovoLog FlexPen 4 unit, 0.04 mL, Route: SUB-Q, Drug form: SOLN, Bedtime, PRN Blood Glucose Results, Start date: 08/13/11 12:53:00, Duration: 30 day, Stop date: 09/12/11 12:52:00 SUB-Q No Longer Active Baba 08/13/2011 [facility] glucagon 1 mg, Route: IM, Drug form: PDR/INJ, PRN, PRN Blood Glucose Results, Start date: 08/13/11 12:52:00, Duration: 30 day, Stop date: 09/12/11 12:51:00 IM No Longer Active Baba 08/13/2011 [facility] Dextrose 50% in Water IV 50 mL, Route: IVP, Start date: 08/13/11 12:52:00, Duration: 30 day, Stop date: 09/12/11 12:51:00, PRN Blood Glucose Results [facility] NovoLog FlexPen 10 unit, 0.1 mL, Route: SUB-Q, Drug form: SOLN, Sliding Scale, PRN Blood Glucose Results, Start date: 08/13/11 12:52:00, Duration: 30 day, Stop date: 09/12/11 12:51:00 SUB-Q No Longer [facility] Cordarone 200 mg, 1 tab, Route: PO, Drug form: TAB, Daily, Start date: 08/13/11 12:00:00, Duration: 30 day, Stop date: 09/12/11 9:00:00 PO No Longer Active [facility] 08/13/2011 [facility] pneumococcal 23-valent vaccine 0.5 ml, Route: IM, Drug Form: INJ, Start date: 08/13/11 9:00:00, Stop date: 08/13/11 9:00:00 IM No Longer Active SYSTEM 08/13/2011 [facility] hydrochlorothiazide 25 mg oral tablet 25 mg, 1 tab, Route: PO, Drug form: TAB, Daily, Start date: 08/13/11 9:00:00, Duration: 30 day, Stop date: 09/11/11 9:00:00 PO No Longer Active Baba 08/13/2011 [facility] Cozaar 100 mg, 2 tab, Route: PO, Drug form: TAB, Daily, Start date: 08/13/11 9:00:00, Duration: 30 day, Stop date: 09/11/11 9:00:00 PO No Longer Active Baba 08/13/2011 [facility] Hyzaar 100 mg-25 mg oral tablet 1 tab, Route: PO, Drug Form: TAB, Daily, Start date: 08/13/11 9:00:00, Duration: 30 day, Stop date: 09/11/11 9:00:00 PO No Longer Active Baba 08/13/2011 [facility] Pravachol 20 mg, 1 tab, Route: PO, Drug form: TAB, QPM, Start date: 08/12/11 21:00:00, Duration: 30 day, Stop date: 09/11/11 17:00:00 PO No Longer Active Baba 08/13/2011 [facility] hydrALAZINE 100 mg oral tablet 100 mg, 2 tab, Route: PO, Drug form: TAB, BID, Start date: 08/12/11 21:00:00, Duration: 30 day, Stop date: 09/11/11 9:00:00 PO No Longer Active Baba 08/13/2011 [facility] nitroglycerin 0.4 mg sublingual tablet 0.4 mg, 1 tab, Route: SL, Drug form: TAB, Q5Min, PRN Chest Pain, Start date: 08/12/11 20:40:00, Duration: 30 day, Stop date: 09/11/11 20:39:00 SL No Longer Active Baba 08/13/2011 [facility] atropine 0.5 mg, 5 mL, Route: IVP, Drug form: INJ, PRN, PRN Bradycardia, Start date: 08/12/11 20:40:00, Duration: 30 day, Stop date: 09/11/11 20:39:00 IVP No Longer Active Baba 08/13/2011 [facility] pantoprazole 40 mg, Route: IVP, Drug form: INJ, Daily, Priority: Routine, Start date: 08/12/11 9:00:00, Duration: 30 day, Stop date: 09/10/11 9:00:00 IVP No Longer Active Baba 08/12/2011 [facility] Saline Flush 0.9% 5 ml, Route: IVP, Drug Form: INJ, PRN, PRN Line Flush, Start date: 08/12/11 3:02:00, Duration: 30 day, Stop date: 09/11/11 3:01:00 IVP No Longer Active Baba 08/12/2011 [facility] 1/2NS + KCL 20mEq/L 1000ml (Premix) 1,000 mL 1,000 mL, Rate: 125 ml/hr, Infuse over: 8 hr, Route: IV, Dosing Weight 79.545 kg, Total Volume: 1,000, Start date: 08/12/11 3:02:00, Stop date: 09/11/11 3:01:00 IV No Longer Active Baba 08/12/2011 [facility] ondansetron 4 mg, 2 mL, Route: IVP, Drug form: INJ, Q6H, PRN Nausea & Vomiting, Start date: 08/12/11 3:02:00, Duration: 30 day, Stop date: 09/11/11 3:01:00 IVP No Longer Active Baba 08/12/2011 [facility] Centrum Silver Men's oral tablet Substitution Allowed, Maintenance Active 08/12/2011 [facility] Toprol-XL 100 mg oral tablet, extended release 100 mg, 1 tab, PO, Daily, 30 tab, Substitution Allowed, ERTAB PO No Longer Active 08/12/2011 [facility] Hyzaar 100 mg-25 mg oral tablet 1 tab, PO, Daily, 30 tab, Substitution Allowed, Maintenance, TAB PO Active Baba 08/12/2011 [facility] hydrALAZINE 100 mg oral tablet 100 mg, 1 tab, PO, BID, 60 tab, Substitution Allowed, TAB PO Active Baba 08/12/2011 [facility] Pravachol 20 mg oral tablet 20 mg, 1 tab, PO, Daily, 30 tab, Substitution Allowed, TAB PO Active Baba 08/12/2011 [facility] Saline Flush 0.9% 5 ml, Route: IVP, Drug Form: INJ, PRN, PRN Line Flush, Start date: 08/11/11 17:30:00, Duration: 30 day, Stop date: 09/10/11 17:29:00 IVP No Longer Active 08/11/2011 [facility] ondansetron 4 mg, Route: IVP, ONCE, Priority: STAT, Start date: 08/11/11 17:30:00, Stop date: 08/11/11 17:30:00 IVP No Longer Active Sera 08/11/2011 [facility] Allergies, Adverse Reactions, Alerts Substance Category Reaction Severity Reaction type Status Date Reported Comments Source penicillins Assertion Drug allergy Active [facility] Immunizations Immunization Date Given Site Status Last Updated Comments Source pneumococcal 23-valent vaccine 08/13/2011 Not Given [facility] [place] Results Order Name Results Value Reference Range Date Interpretation Comments Source CHEMISTRY Bili Total 0.8 0.2 - 1.3 08/13/2011 Normal [facility] CHEMISTRY Alk Phos 51 39 - 136 08/13/2011 Normal [facility] CHEMISTRY ALT 19 0 - 65 08/13/2011 Normal [facility] CHEMISTRY Albumin Lvl 3.3 3.5 - 5.0 08/13/2011 LOW [facility] CHEMISTRY AST 18 0 - 37 08/13/2011 Normal [facility] CHEMISTRY BUN 14 7 - 22 08/13/2011 Normal [facility] CHEMISTRY Glucose Lvl 93 70 - 99 08/13/2011 Normal <sup>2</sup>Interpretive Data: Adult reference range values reflect the clinical guidelines of the [employer]. [facility] CHEMISTRY Total Protein 5.9 6.4 - 8.4 08/13/2011 LOW [facility] CHEMISTRY Calcium Lvl 7.9 8.5 - 10.5 08/13/2011 LOW [facility] CHEMISTRY CO2 25 24 - 32 08/13/2011 Normal [facility] CHEMISTRY Creatinine Lvl 1.1 0.5 - 1.4 08/13/2011 Normal [facility] CHEMISTRY Sodium Lvl 143 135 - 145 08/13/2011 Normal [facility] CHEMISTRY Chloride Lvl 110 95 - 109 08/13/2011 HI [facility] CHEMISTRY Potassium Lvl 3.9 3.5 - 5.1 08/13/2011 Normal [facility] CHEMISTRY AGAP 11.9 10.0 - 20.0 08/13/2011 Normal [facility] CHEMISTRY Globulin 2.6 2.0 - 4.0 08/13/2011 Normal [facility] CHEMISTRY B/C Ratio 13 6 - 25 08/13/2011 Normal [facility] CHEMISTRY A/G Ratio 1.3 0.7 - 1.6 [...] CO2 21 24 - 32 08/12/2011 LOW [facility] CHEMISTRY AGAP 14.9 10.0 - 20.0 08/12/2011 Normal [facility] CHEMISTRY Calcium Lvl 8.4 8.5 - 10.5 08/12/2011 LOW [facility] CHEMISTRY BUN 20 7 - 22 08/12/2011 Normal [facility] CHEMISTRY Glucose Lvl 89 70 - 99 08/12/2011 Normal <sup>3</sup>Interpretive Data: Adult reference range values reflect the clinical guidelines of the [employer]. [facility] HEMATOLOGY Hct 33.9 42.0 - 54.0 08/12/2011 LOW [facility] HEMATOLOGY Hgb 11.7 14.0 - 18.0 08/12/2011 [facility] HEMATOLOGY Hgb 10.9 14.0 - 18.0 08/12/2011 [facility] HEMATOLOGY Hct 31.2 42.0 - 54.0 08/12/2011 [facility] BACTERIAL - SEROLOGY MRSA by PCR [...] after consultation with an infectious diseases specialist. [facility] HEMATOLOGY Monocytes 8.1 2.0 - 12.0 08/12/2011 Normal [facility] HEMATOLOGY Basophils 0.6 0.0 - 1.0 08/12/2011 Normal [facility] HEMATOLOGY Eosinophils 2.1 0.0 - 4.0 08/12/2011 Normal [facility] HEMATOLOGY Lymphocytes # 1.2 1.0 - 5.5 08/12/2011 Normal [facility] HEMATOLOGY Segs-Bands # 3.1 1.5 - 8.1 08/12/2011 Normal [facility] HEMATOLOGY Lymphocytes 25.5 20.0 - 40.0 08/12/2011 Normal [facility] HEMATOLOGY Segs 63.7 45.0 - 75.0 08/12/2011 Normal [facility] HEMATOLOGY Basophils # 0.0 0.0 - 0.2 [...] MPV 9.0 7.4 - 10.4 08/12/2011 Normal [facility] HEMATOLOGY MCH 30.7 27.0 - 31.0 08/12/2011 Normal [facility] HEMATOLOGY MCV 88.4 80.0 - 94.0 08/12/2011 Normal [facility] HEMATOLOGY MCHC 34.7 32.0 - 36.0 08/12/2011 Normal [facility] BLOOD BANK RESULTS ABO/Rh B POS 08/12/2011 Unknown [facility] BLOOD BANK RESULTS Antibody Scrn Negative (08/11/2011 19:50:00) 08/12/2011 Normal [facility] CHEMISTRY Albumin Lvl 3.6 3.5 - 5.0 08/11/2011 Normal [facility] CHEMISTRY Calcium Lvl 7.9 8.5 - 10.5 08/11/2011 LOW [facility] CHEMISTRY Glucose Lvl 102 70 - 99 08/11/2011 HI <sup>4</sup>Interpretive Data: Adult reference range values reflect the clinical guidelines of the [employer]. [facility] CHEMISTRY Creatinine Lvl 1.2 0.5 - 1.4 08/11/2011 Normal [facility] CHEMISTRY BUN 24 7 - 22 08/11/2011 HI [facility] CHEMISTRY Chloride Lvl 105 95 - 109 08/11/2011 Normal [facility] CHEMISTRY Potassium Lvl 3.3 3.5 - 5.1 08/11/2011 LOW [facility] CHEMISTRY CO2 22 24 - 32 08/11/2011 LOW [facility] CHEMISTRY Sodium Lvl 138 135 - 145 08/11/2011 Normal [facility] CHEMISTRY Total Protein 6.5 6.4 - 8.4 08/11/2011 Normal [facility] CHEMISTRY Alk Phos 57 39 - 136 08/11/2011 Normal [facility] CHEMISTRY Bili Total 1.0 0.2 - 1.3 08/11/2011 Normal [facility] CHEMISTRY AST 14 0 - 37 08/11/2011 Normal [facility] CHEMISTRY ALT 19 0 - 65 08/11/2011 Normal [facility] CHEMISTRY AGAP 14.3 10.0 - 20.0 08/11/2011 Normal [facility] CHEMISTRY B/C Ratio 20 6 - 25 08/11/2011 Normal [facility] CHEMISTRY A/G Ratio 1.2 0.7 - 1.6 08/11/2011 Normal [facility] CHEMISTRY Globulin 2.9 2.0 - 4.0 08/11/2011 Normal [facility] CHEMISTRY Lipase Lvl 146 73 - 393 08/11/2011 Normal [facility] HEMATOLOGY PTT 28.6 22.9 - 35.8 08/11/2011 Normal <sup>6</sup>Interpretive Data: Heparin Therapeutic Range: 57 - 92 Seconds [facility] HEMATOLOGY PT 14.0 12.0 - 14.7 08/11/2011 Normal [facility] HEMATOLOGY INR 1.08 0.85 - 1.17 08/11/2011 Normal <sup>5</sup>Interpretive Data: RECOMMENDED RANGES FOR PROTIME INR: 2.0-3.0 for most medical and surgical thromboembolic states. 2.5-3.5 for artificial heart valves and recurrent embolism. INR SHOULD BE USED ONLY FOR PATIENTS ON STABLE ANTICOAGULANT THERAPY. [facility] Pathology Reports No Data Provided for This [...] Source Temperature Oral (F) 98.0 F 08/16/2011 [facility] Respitory Rate 20 08/16/2011 [facility] Diastolic (mm Hg) 78 08/16/2011 [facility] Systolic (mm Hg) 146 08/16/2011 [facility] Heart Rate 71 08/16/2011 [facility] Diastolic (mm Hg) 62 08/15/2011 [facility] Temperature Oral (F) 98.4 F 08/15/2011 [facility] Heart Rate 92 08/15/2011 [facility] Respitory Rate 20 08/15/2011 [facility] Systolic (mm Hg) 121 08/15/2011 [facility] Heart Rate 62 08/15/2011 [facility] Temperature Oral (F) 98.1 F 08/15/2011 [facility] Systolic (mm Hg) 129 08/15/2011 [facility] Respitory Rate 20 08/15/2011 [facility] Diastolic (mm Hg) 72 08/15/2011 [facility] Weight 73.001 08/12/2011 [facility] Height 167.64 cm 08/11/2011 [facility] Weight 79.545 08/11/2011 [facility] Encounters Location Location Details Encounter Type Encounter Number Reason For Visit Attending Provider ADM Date DC Date Status Source [facility] Inpatient [id number] KELLY TRIPLETT 08/11/2011 08/15/2011 Discharged [facility] [place] [facility] [id number] Harpreet Weiner 02/04/2014 02/05/2014 [facility] [place] [facility] [place] [facility] [id number] Harpreet Weiner 03/28/2016 03/29/2016 [facility] [place] Procedures No Data Provided for This Section Assessment and Plan No Data Provided for This Section Plan of Care No Data Provided for This Section Social History Social History Date Source No data available for this section 03/29/2016 [facility] [place] Family History No Data Provided for This Section Advance Directives No Data Provided for This Section Functional Status No Data Provided for This Section
[2018-10-09] MEDS ORDERED: POTASSIUM CHLORIDE 10MEQ EA PO ONE (11:00)
--- NOTE | 2018-10-09 12:36 | NUR ---
NOTIFIE WASHER ENGINEER,TAMMI, MULTIPLE UNSUCCESSFUL IV ATTEMPTS. STATES HE WILL COME TO ER TO ATTEMPT ULTRASOUND GUIDED IV.
[2018-10-09 13:20] VITALS: BP 154/84
--- NOTE | 2018-10-09 13:20 | NUR ---
Pt received from ER at this time. Pt is aox1 to himself he is mostly british speaking. Pt is pleasantly confused. Pt was admitted dehydration, lactic acidosis and s/p fall at home. 0 s/s of acute distress noted. 0 s/s of pain noted. Family at the bedside. Pt is being admitted to Dr. Knowles. Blanchable redness to sacral area and laceration with 4 shelby noted to back of head.
[2018-10-09 16:30] VITALS: BP 146/68
--- NOTE | 2018-10-09 16:31 | NUR ---
Spoke with Dr. Knowles to get orders for PICC line because pt has very poor venous access. Son is at the bedside and let him know Dr. Knowles ordered PICC line and he states he wants to wait for his sister, who is POA to come and make that decision.
[2018-10-09] MEDS: FAMOTIDINE 20 MG TAB PO SCH (16:47)
[2018-10-09] MEDS: ENOXAPARIN 30 MG/0.3 ML SYR SC SCH (16:47)
[2018-10-09 17:14] LABS: CREATINE KINASE MB 9.4 ng/mL (0-5.0)
--- NOTE | 2018-10-09 18:31 | NUR ---
Daughter(POA) at the bedside. Spoke to her about the order that Dr. Knowles placed for PICC line and she is refusing the PICC at this time. Peripheral IV was started on left hand 20g at this time. IVF started.
[2018-10-09 20:41] VITALS: BP 148/71
[2018-10-09 21:00] VITALS: BP 148/71
[2018-10-09] MEDS: SODIUM CHLORIDE 0.9% 1000ML 1,000 ML IV SCH (22:03)
[2018-10-10] VITALS (8 sets, daily range): BP systolic 118–165; BP diastolic 60–86
[2018-10-10 06:26] LABS: BASOPHILS % 0.4 % (0.0-1.0); EOSINOPHILS # (AUTO) 0.1 (0.0-0.4); HEMATOCRIT 36.5 % (38.2-49.6); HEMOGLOBIN 12.2 g/dL (14.0-18.0); LYMPHOCYTES # (AUTO) 0.9 (1.0-3.2); LYMPHOCYTES % 17.8 % (18.0-39.1); MEAN CORPUSCULAR HEMOGLOBIN 29.8 pg (28-32); MEAN CORPUSCULAR HGB CONC 33.4 g/dL (31-35); MONOCYTES # (AUTO) 0.4 (0.2-0.8); MONOCYTES % 7.6 % (4.4-11.3); NEUTROPHILS # (AUTO) 3.6 (2.1-6.9); PLATELET COUNT 152 x10e3/uL (140-360); RED CELL DISTRIBUTION WIDTH 13.9 % (11.7-14.4)
[2018-10-10 06:44] LABS: ANION GAP 12.8 mmol/L (8-16); BLOOD UREA NITROGEN 19 mg/dL (7-26); BUN/CREATININE RATIO 23 (6-25); CALCIUM 8.2 mg/dL (8.4-10.2); CARBON DIOXIDE 25 mmol/L (22-29); CHLORIDE 105 mmol/L (98-107); CREATININE, SERUM 0.83 mg/dL (0.72-1.25); EST GLOMERULAR FILTRATION RATE > 60 ML/MIN (60-); GLUCOSE 115 mg/dL (74-118); SODIUM 140 mmol/L (136-145)
[2018-10-10 06:51] LABS: POTASSIUM 2.8 mmol/L (3.5-5.1)
[2018-10-10 07:14] LABS: CREATINE KINASE MB 4.9 ng/mL (0-5.0)
--- NOTE | 2018-10-10 07:20 | NUR ---
patient endorsed to next shift for continuity of care.
--- NOTE | 2018-10-10 07:26 | NUR ---
Dr. Benson peña aware of potassium levels for patient, ordered meds and recheck at 4pm.
[2018-10-10] MEDS ORDERED: POTASSIUM CHLORIDE 10MEQ EA PO NR ×3 (08:30→18:30)
[2018-10-10] MEDS ORDERED: ENOXAPARIN 30 MG/0.3 ML SYR SC SCH (09:00)
[2018-10-10] MEDS: FAMOTIDINE 20 MG TAB PO SCH ×2 (09:16→16:30)
--- NOTE | 2018-10-10 11:26 | NUR ---
H&P cc: fall HPI: 83yoM, PCP , fell and hit back of head, juancho to ED, shelby to site. He was down for some time at home; Pt admits being dizzy. PMH: CAD s/p CABG, PVD, Right leg cellulitis, HTN, dementia PShx: CABG Allergies; see emr FH/SH; ; no etoh/cigs Meds; see MAR ROS: no f/c/s/N/V/D/FAUSTIN/vision changes/cp/sb v/s; revd PE tired appearing anicteric good chest expansion abd nondistended no leg edema skin with chr changes around neck flat affect alert; awake; ramirez labs/meds; revd A/P: 83yoM Acute rhabdomyolysis Lactic acidosis Hypokalemia CAD PVD Dementia HTN PLAN Replace K IVF Home meds Prop: scd DIspo: Jon Knowles MD, PhD.
[2018-10-10] MEDS: SODIUM CHLORIDE 0.9% 1000ML 1,000 ML IV SCH ×2 (11:54→21:49)
[2018-10-10 16:48] LABS: ALANINE AMINOTRANSFERASE 13 IU/L (0-55); ALBUMIN 3.8 g/dL (3.5-5.0); ALBUMIN/GLOBULIN RATIO 1.2 (0.8-2.0); ALKALINE PHOSPHATASE 80 IU/L (40-150); ANION GAP 13.6 mmol/L (8-16); BLOOD UREA NITROGEN 16 mg/dL (7-26); BUN/CREATININE RATIO 19 (6-25); CALCIUM 8.4 mg/dL (8.4-10.2); CARBON DIOXIDE 25 mmol/L (22-29); CHLORIDE 105 mmol/L (98-107); CREATININE, SERUM 0.83 mg/dL (0.72-1.25); EST GLOMERULAR FILTRATION RATE > 60 ML/MIN (60-); GLUCOSE 90 mg/dL (74-118); POTASSIUM 3.6 mmol/L (3.5-5.1); SODIUM 140 mmol/L (136-145)
[2018-10-10] MEDS: ENOXAPARIN 30 MG/0.3 ML SYR SC SCH (17:00)
[2018-10-10] MEDS: HYDRALAZINE HCL 25 MG TAB PO SCH ×2 (20:39→21:00)
--- NOTE | 2018-10-10 23:36 | NUR ---
patient refused midnight vital sign.
[2018-10-11] VITALS (8 sets, daily range): BP systolic 144–161; BP diastolic 71–91
[2018-10-11] MEDS: LEVOTHYROXINE SODIUM 75 MCG TAB PO SCH (05:42)
[2018-10-11 06:50] LABS: BASOPHILS % 0.3 % (0.0-1.0); EOSINOPHILS # (AUTO) 0.2 (0.0-0.4); HEMATOCRIT 37.6 % (38.2-49.6); HEMOGLOBIN 12.6 g/dL (14.0-18.0); LYMPHOCYTES # (AUTO) 1.2 (1.0-3.2); LYMPHOCYTES % 20.2 % (18.0-39.1); MEAN CORPUSCULAR HGB CONC 33.5 g/dL (31-35); MEAN CORPUSCULAR VOLUME 89.5 fL (81-99); MONOCYTES # (AUTO) 0.5 (0.2-0.8); MONOCYTES % 8.3 % (4.4-11.3); NEUTROPHILS # (AUTO) 3.9 (2.1-6.9); NEUTROPHILS % 67.9 % (38.7-80.0); PLATELET COUNT 154 x10e3/uL (140-360); RED CELL DISTRIBUTION WIDTH 14.6 % (11.7-14.4)
[2018-10-11 07:10] LABS: ANION GAP 12.3 mmol/L (8-16); BLOOD UREA NITROGEN 15 mg/dL (7-26); BUN/CREATININE RATIO 19 (6-25); CALCIUM 8.3 mg/dL (8.4-10.2); CARBON DIOXIDE 27 mmol/L (22-29); CHLORIDE 103 mmol/L (98-107); CREATINE KINASE 562 IU/L (30-200); CREATININE, SERUM 0.79 mg/dL (0.72-1.25); EST GLOMERULAR FILTRATION RATE > 60 ML/MIN (60-); GLUCOSE 107 mg/dL (74-118); POTASSIUM 3.3 mmol/L (3.5-5.1); SODIUM 139 mmol/L (136-145)
[2018-10-11] MEDS: NAMENDA 28 MG PO SCH (09:00)
[2018-10-11] MEDS: [UNRECOGNIZED DRUG - OTHER] PO SCH (09:00)
[2018-10-11] MEDS: FAMOTIDINE 20 MG TAB PO SCH ×2 (09:28→17:50)
[2018-10-11] MEDS: HYDRALAZINE HCL 25 MG TAB PO SCH ×3 (09:28→20:32)
[2018-10-11] MEDS: SODIUM CHLORIDE 0.9% 1000ML 1,000 ML IV SCH ×2 (10:00→20:33)
[2018-10-11] MEDS: ENOXAPARIN 30 MG/0.3 ML SYR SC SCH (17:00)
--- NOTE | 2018-10-11 17:12 | NUR ---
IM- progress note O/N no events ROS: no f/c/s/N/V/D/FAUSTIN/vision changes/cp/sb v/s; revd PE tired appearing anicteric good chest expansion abd nondistended no leg edema skin with chr changes around neck flat affect alert; awake; ramirez labs/meds; revd A/P: 83yoM Acute rhabdomyolysis Lactic acidosis Hypokalemia CAD PVD Dementia HTN PLAN Replace K IVF Home meds Prop: scd DIspo: Increase fluids; check labs in am. Jon Knowles MD, PhD.
[2018-10-11] MEDS ORDERED: SODIUM CHLORIDE 0.9% 500ML 500 ML ONE (18:37)
[2018-10-11] MEDS ORDERED: SODIUM CHLORIDE 0.9% 1000ML 1,000 ML IV ONE (19:00)
[2018-10-11] MEDS ORDERED: SODIUM CHLORIDE 0.9% 500ML 500 ML IV ONE (19:00)
[2018-10-12 01:06] VITALS: BP 145/66
[2018-10-12] MEDS: SODIUM CHLORIDE 0.9% 1000ML 1,000 ML IV SCH ×2 (04:30→10:00)
[2018-10-12] MEDS: LEVOTHYROXINE SODIUM 75 MCG TAB PO SCH (05:12)
[2018-10-12 05:16] VITALS: BP 138/78
[2018-10-12 05:33] LABS: BASOPHILS % 0.4 % (0.0-1.0); EOSINOPHILS # (AUTO) 0.2 (0.0-0.4); EOSINOPHILS % 4.4 % (0.0-6.0); HEMATOCRIT 38.6 % (38.2-49.6); HEMOGLOBIN 12.9 g/dL (14.0-18.0); LYMPHOCYTES # (AUTO) 0.9 (1.0-3.2); LYMPHOCYTES % 17.1 % (18.0-39.1); MEAN CORPUSCULAR HEMOGLOBIN 29.8 pg (28-32); MEAN CORPUSCULAR HGB CONC 33.4 g/dL (31-35); MEAN CORPUSCULAR VOLUME 89.1 fL (81-99); MONOCYTES # (AUTO) 0.5 (0.2-0.8); MONOCYTES % 8.9 % (4.4-11.3); NEUTROPHILS # (AUTO) 3.8 (2.1-6.9); NEUTROPHILS % 68.8 % (38.7-80.0); PLATELET COUNT 130 x10e3/uL (140-360); RED BLOOD COUNT 4.33 x10e6/uL (4.3-5.7); RED CELL DISTRIBUTION WIDTH 13.8 % (11.7-14.4)
[2018-10-12 05:52] LABS: ANION GAP 16.5 mmol/L (8-16); BLOOD UREA NITROGEN 10 mg/dL (7-26); BUN/CREATININE RATIO 13 (6-25); CALCIUM 8.5 mg/dL (8.4-10.2); CARBON DIOXIDE 21 mmol/L (22-29); CHLORIDE 102 mmol/L (98-107); CREATINE KINASE 383 IU/L (30-200); CREATININE, SERUM 0.76 mg/dL (0.72-1.25); EST GLOMERULAR FILTRATION RATE > 60 ML/MIN (60-); GLUCOSE 102 mg/dL (74-118); POTASSIUM 3.5 mmol/L (3.5-5.1); SODIUM 136 mmol/L (136-145)
[2018-10-12 08:02] VITALS: BP 160/89
[2018-10-12] MEDS: FAMOTIDINE 20 MG TAB PO SCH (08:18)
[2018-10-12] MEDS: HYDRALAZINE HCL 25 MG TAB PO SCH (08:18)
[2018-10-12] MEDS: [UNRECOGNIZED DRUG - OTHER] PO SCH (08:19)
[2018-10-12] MEDS: NAMENDA 28 MG PO SCH (08:19)
[2018-10-12 08:20] VITALS: BP 160/89
--- NOTE | 2018-10-12 09:35 | NUR ---
D/C summary Principal Dx: Acute rhabdomyolysis Lactic acidosis Hypokalemia SEcondary Dx: CAD PVD Dementia HTN PLAN Replace K IVF Home meds Prop: scd DIspo: Increase fluids; check labs in am. D/C pending Echo and carotid U/S. f/u pcp 1 week stable d/.c home d/c>35mins. Jon Knowles MD, PhD.
[2018-10-12] MEDS ORDERED: ONDANSETRON HCL 4 MG ORAL DISINTEGRATING TAB PO PRN (09:45)
--- NOTE | 2018-10-12 12:02 | NUR ---
PIV removed with tip intact. d/c instructions explained to patient and his son. all personal belongings, and d/c instructions in hand at time of d/c.
--- NOTE | 2018-10-12 12:45 | NUR ---
Received home health order. Spoke to pt's son Maurisio at bedside. He is currently pt's provider. CM explained what home health would provide. States he's agreeable to home health for his dad. Choice letter signed for [facility] and placed in chart. Copy given to pt's son. Referral was faxed.
== END 2018-10-12 12:01 | disposition home or self-care (01) ==
LOC: ER 07:58 → ERHOLD 10:04 → MED/SURG2 13:08
PROVIDERS: ADMIT Internal Medicine; ATTEND Internal Medicine
DX: M62.82 Rhabdomyolysis (principal); S01.01XA Laceration without foreign body of scalp, initial encounter; W18.30XA Fall on same level, unspecified, initial encounter; Y93.9 Activity, unspecified; Y92.013 Bedroom of single-family (private) house as the place of occurrence of the external cause; I25.10 Atherosclerotic heart disease of native coronary artery without angina pectoris; Z95.1 Presence of aortocoronary bypass graft; I73.9 Peripheral vascular disease, unspecified; I10 Essential (primary) hypertension; F03.90 Unspecified dementia, unspecified severity, without behavioral disturbance, psychotic disturbance, mood disturbance, and anxiety; E87.2 Acidosis; E87.6 Hypokalemia
CPT/HCPCS: 12001; 36415 ×4; 70450; 71045; 80048 ×3; 80053 ×2; 82550 ×4; 82553 ×2; 83605 ×2; 83880; 84484 ×2; 85025 ×4; 90471; 90714; 93005; 93306; 93880; 96360; 96361; 97139; 99284; G0378 ×4; J1650 ×3; J7030 ×4; J7040; J7121

== ENCOUNTER 2019-01-09 08:06 | Emergency (ER) | payer MEDICARE, OTHER ==
[~2019-01-09] VITALS: Ht 170.2 cm; Wt 74.8 kg
[~2019-01-09 08:06] MED LIST changes: +LOSARTAN-HCTZ1 EAC1 PO
--- NOTE | 2019-01-09 08:15 | NUR ---
FAMILY AT BEDSIDE. CHAIRS PULLED UP TO BED, FAMILY GIVEN TISSUE. SON WHO WAS BROUGHT IN BY [employer]ICE [employer] ([employer]), IS AWARE WE NEED INFORMATION FOR HOME BEFORE THEY LEAVE
--- NOTE | 2019-01-09 09:06 | NUR ---
PATIENT RELEASED BY SHREDDED FILLER HOPPER FEEDER. IV REMOVED FROM RIGHT LOWER LEG. ETT REMOVED.
--- NOTE | 2019-01-09 10:31 | NUR ---
FAMILY OBTAINED HOME AND DAUGHTER WENDY HANNON SIGNED RELEASE INFORMATION
--- NOTE | 2019-01-09 11:04 | NUR ---
SPOKE WITH TIE CUTTER AT HOME[place] [facility] [place] THE DIRECTOR WILL CALL ME BACK TO OBTAIN INFORMATION FOR HOOK AND EYE MACHINE OPERATOR
--- NOTE | 2019-01-09 11:24 | NUR ---
SPOKE WITH POLE CLIMBER, AMAYA. INFORMATION GIVEN FOR CORK INSULATOR. ETA 1 TO 1 1/2 HRS.
--- NOTE | 2019-01-09 13:39 | NUR ---
SPOKE WITH HOME REGARDING ETA. I WAS TOLD SOMEONE IS IN ROUTE
--- NOTE | 2019-01-09 14:25 | NUR ---
HOME FINALLY HERE TO GET PT
[2019-01-09] MEDS ORDERED: SODIUM CHLORIDE 0.9% 1000 ML BAG ONE (18:29)
[2019-01-09] MEDS ORDERED: SODIUM CHLORIDE FLUSH 10 ML SYR ONE (18:29)
== END 2019-01-09 14:25 | disposition expired ==
LOC: ER 08:06
DX: I46.9 Cardiac arrest, cause unspecified (principal); F03.90 Unspecified dementia, unspecified severity, without behavioral disturbance, psychotic disturbance, mood disturbance, and anxiety; I10 Essential (primary) hypertension; I25.10 Atherosclerotic heart disease of native coronary artery without angina pectoris; I73.9 Peripheral vascular disease, unspecified; E03.9 Hypothyroidism, unspecified
CPT/HCPCS: 92950 ×2; 99284; J7030 ×2